=== PATIENT | female | born 1950 | race Caucasian/White ===

== ENCOUNTER → 2023-02-11 | Outpatient (CLI) | payer MEDICARE, BC, OTHER ==
[2023-02-11 15:14] LABS: BASO # 0.1 10^3/uL (0.0-0.2); BASO % 0.5 % (0.0-1.0); EOS # 0.1 10^3/uL (0.0-0.5); EOS % 0.9 % (0.0-3.0); HEMATOCRIT 48.7 % (36.0-47.0); HEMOGLOBIN 15.7 g/dl (12.0-15.5); LYMPH # 2.3 10^3/uL (1.5-5.0); LYMPH % 19.3 % (24.0-44.0); MEAN CORPUSCULAR HEMOGLOBIN 28.8 pg (27.0-33.0); MEAN CORPUSCULAR HGB CONC 32.2 g/dl (32.0-36.5); MEAN CORPUSCULAR VOLUME 89.4 fl (80.0-96.0); MONO # 1.2 10^3/uL (0.0-0.8); MONO % 10.1 % (2.0-8.0); NEUTROPHILS # 8.1 10^3/uL (1.5-8.5); NEUTROPHILS % 68.9 % (36.0-66.0); PLATELET COUNT, AUTOMATED 292 10^3/uL (150-450); RED BLOOD COUNT 5.45 10^6/uL (4.00-5.40); THYROXINE (T4) 13.2 UG/DL (4.5-10.9); WHITE BLOOD COUNT 11.7 10^3/uL (4.0-10.0)
[2023-02-11 15:15] LABS: ALBUMIN 3.7 G/DL (3.2-5.2); ALKALINE PHOSPHATASE 48 U/L (46-116); ALT/SGPT 26 U/L (7.0-40); AST/SGOT 21 U/L (<34); BILIRUBIN,TOTAL 0.6 MG/DL (0.3-1.2); BLOOD UREA NITROGEN 10 MG/DL (9-23); CALCIUM LEVEL 10.4 MG/DL (8.3-10.6); CARBON DIOXIDE LEVEL 28 MMOL/L (20-31); CHLORIDE LEVEL 100 MMOL/L (98-107); CREATININE FOR GFR 0.66 MG/DL (0.55-1.30); GLOMERULAR FILTRATION RATE > 60.0 (>39); GLUCOSE, FASTING 106 MG/DL (74-106); POTASSIUM SERUM 3.6 MMOL/L (3.5-5.1); SODIUM LEVEL 136 MMOL/L (136-145); THYROID STIMULATING HORMONE 0.027 uIU/ML (0.55-4.78); TOTAL PROTEIN 6.4 G/DL (5.7-8.2)
[2023-02-11 15:17] LABS: VITAMIN B12 LEVEL 725 PG/ML (211-911)
[2023-02-11 15:22] LABS: FREE THYROXINE INDEX 5.5 % (1.3-4.8)
[2023-02-11 15:25] LABS: FOLATE > 24.00 NG/ML (>5.4)
[2023-02-11 15:29] LABS: HEMOGLOBIN A1c 5.4 % (4.0-6.0)
== END ==
LOC: M PLALAB 10:48
PROVIDERS: ATTEND Psychiatry & Neurology Neurology
DX: E07.9 Disorder of thyroid, unspecified (principal); E53.8 Deficiency of other specified B group vitamins; R41.3 Other amnesia; Z13.1 Encounter for screening for diabetes mellitus; Z79.899 Other long term (current) drug therapy

== ENCOUNTER → 2023-05-02 | Outpatient (CLI) | payer MEDICARE, BC, OTHER | LOC: M PLARAD 11:26 | PROVIDERS: ATTEND Registered Nurse | DX: R91.8 Other nonspecific abnormal finding of lung field (principal) | CPT/HCPCS: 78815; A9552 ==

== ENCOUNTER 2023-06-15 09:29 | Day surgery (SDC) | payer MEDICARE, BC ==
[~2023-06-15] VITALS: Ht 154.9 cm; Wt 46.7 kg
[~2023-06-15 09:29] MED LIST: CALC500C16 PO; CENT1TAB PO; CLON0.2T PO; EPINEPHrine 1MG/10ML SYRINGE 1.5IN As Ordered ONE; HYDR100T PO; LOSA100T8 PO; MEMA10TA PO; METO50TA7 PO; POTA10CA60 PO; VITA100093 PO
[2023-06-15] MEDS ORDERED: LR 1,000 ML IV SCH ×2 (10:40→13:05)
[2023-06-15] MEDS: ALBUTEROL SULFATE 2.5MG/0.5ML INH NEB SOLN INH ONE (11:56)
[2023-06-15] MEDS ORDERED: fentaNYL 100 MCG/2 ML INJECTION As Ordered ONE (11:56)
[2023-06-15] MEDS ORDERED: ONDANSETRON 4MG 2ML VIAL As Ordered ONE (11:56)
[2023-06-15] MEDS ORDERED: LIDOCAINE 2% 100MG/5ML SDV (FOR ANES.) As Ordered ONE (11:56)
[2023-06-15] MEDS ORDERED: propofoL 200 MG/20 ML VIAL As Ordered ONE (11:56)
[2023-06-15] MEDS ORDERED: ROCURONIUM BROMIDE 50MG/5ML VIAL As Ordered ONE (11:56)
[2023-06-15] MEDS ORDERED: MIDAZOLAM INJ 2MG/2ML VIAL As Ordered ONE (11:56)
[2023-06-15] MEDS: LIDOCAINE PRES-FREE 2% 10ML AMP INH ONE (11:57)
[2023-06-15] MEDS: CETACAINE SPRAY 5GM As Ordered ONE (12:27)
[2023-06-15] MEDS ORDERED: SUGAMMADEX SODIUM 500 MG/5 ML VIAL (BRIDION) As Ordered ONE (12:30)
[2023-06-15] MEDS ORDERED: fentaNYL 100 MCG/2 ML INJECTION IV PRN (13:05)
[2023-06-15] MEDS ORDERED: oxyCODONE 5MG TAB PO PRN (13:05)
[2023-06-15] MEDS ORDERED: ONDANSETRON 4MG 2ML VIAL IV PRN (13:05)
[2023-06-15] MEDS ORDERED: HYDROMORPHONE HCL 0.5 MG/ 0.5 ML SYRINGE IV PRN (13:05)
[2023-06-15 14:06] VITALS: BP 144/67; TEMP 97.9; O2SAT 96
== END 2023-06-15 14:20 | disposition home or self-care (01) ==
LOC: M SDC 09:29
PROVIDERS: ATTEND Internal Medicine Critical Care Medicine
DX: C77.1 Secondary and unspecified malignant neoplasm of intrathoracic lymph nodes (principal); F17.210 Nicotine dependence, cigarettes, uncomplicated; Z79.899 Other long term (current) drug therapy
CPT/HCPCS: 31652; 88173; 88305; J1100; J2250; J2405; J3010

== ENCOUNTER → 2023-07-05 | Outpatient (CLI) | payer MEDICARE, BC ==
[~2023-07-05] MED LIST changes: -EPINEPHrine 1MG/10ML SYRINGE 1.5IN As Ordered ONE; +LIDOCAINE 1% MDV 20ML VIAL As Ordered ONE; +LIDOCAINE W/EPINEPHRINE 1% 20ML VIAL As Ordered ONE; +MIDAZOLAM INJ 2MG/2ML VIAL As Ordered ONE; +NS 1,000 ML IV SCH; -POTA10CA60 PO; +POTA10CA70 PO; +ceFAZolin 2 GM/D5W 50 ML IV BAG As Ordered ONE; +ceFAZolin SOD 2 GM in IV 1 EA IV ONE; +fentaNYL 100 MCG/2 ML INJECTION As Ordered ONE
[2023-07-05 12:50] VITALS: TEMP 98.9
[2023-07-05 15:30] VITALS: BP 134/70; O2SAT 97
== END ==
LOC: M IRPRO 12:28
PROVIDERS: ATTEND Internal Medicine Medical Oncology
DX: C34.32 Malignant neoplasm of lower lobe, left bronchus or lung (principal)
CPT/HCPCS: 36561; C1769; J0690; J2250; J3010

== ENCOUNTER → 2023-07-12 | Outpatient (CLI) | payer MEDICARE, BC ==
[~2023-07-12] MED LIST changes: +LIDO30CR18 TOP; -LIDOCAINE 1% MDV 20ML VIAL As Ordered ONE; -LIDOCAINE W/EPINEPHRINE 1% 20ML VIAL As Ordered ONE; -MIDAZOLAM INJ 2MG/2ML VIAL As Ordered ONE; -NS 1,000 ML IV SCH; +ONDA-84 PO; +PROC10TA5 PO; -ceFAZolin 2 GM/D5W 50 ML IV BAG As Ordered ONE; -ceFAZolin SOD 2 GM in IV 1 EA IV ONE; -fentaNYL 100 MCG/2 ML INJECTION As Ordered ONE
== END ==
LOC: M ONCR 10:44
PROVIDERS: ATTEND General Practice
DX: C34.12 Malignant neoplasm of upper lobe, left bronchus or lung (principal); F03.90 Unspecified dementia, unspecified severity, without behavioral disturbance, psychotic disturbance, mood disturbance, and anxiety; F40.240 Claustrophobia; Z71.2 Person consulting for explanation of examination or test findings; Z79.899 Other long term (current) drug therapy; Z87.891 Personal history of nicotine dependence; Z92.21 Personal history of antineoplastic chemotherapy

== ENCOUNTER → 2023-07-29 | Outpatient (RCR) | payer MEDICARE, BC | LOC: M ONCR 07-18 13:49 | PROVIDERS: ATTEND General Practice | DX: Z51.0 Encounter for antineoplastic radiation therapy (principal); C34.12 Malignant neoplasm of upper lobe, left bronchus or lung ==

== ENCOUNTER → 2023-08-01 | Outpatient (CLI) | payer MEDICARE, BC ==
[2023-08-01 15:38] LABS: TOTAL T3 148.8 NG/DL (60.0-181.0)
[2023-08-01 15:39] LABS: FREE T4 1.3 NG/DL (0.89-1.76); THYROID STIMULATING HORMONE 0.008 uIU/ML (0.55-4.78)
== END ==
LOC: M LAB 14:39
PROVIDERS: ATTEND Nurse Practitioner Family
DX: E05.00 Thyrotoxicosis with diffuse goiter without thyrotoxic crisis or storm (principal)

== ENCOUNTER 2023-08-26 13:04 | Outpatient (RCR) | payer MEDICARE, BC ==
[~2023-08-26 13:04] MED LIST changes: +LIDO15SO8 PO
== END 2023-08-28 ==
LOC: M ONCR 13:04
PROVIDERS: ATTEND General Practice
DX: Z51.0 Encounter for antineoplastic radiation therapy (principal); C34.12 Malignant neoplasm of upper lobe, left bronchus or lung

== ENCOUNTER 2023-09-08 13:15 | Outpatient (RCR) | payer MEDICARE, BC | END 2023-09-28 | LOC: M ONCR 13:15 | PROVIDERS: ATTEND General Practice | DX: Z51.0 Encounter for antineoplastic radiation therapy (principal); C34.12 Malignant neoplasm of upper lobe, left bronchus or lung ==

== ENCOUNTER → 2023-09-16 | Outpatient (CLI) | payer MEDICARE, BC ==
[2023-09-16 15:45] LABS: FREE T4 1.17 NG/DL (0.89-1.76); THYROID STIMULATING HORMONE 0.008 uIU/ML (0.55-4.78)
== END ==
LOC: M LAB 14:48
PROVIDERS: ATTEND Internal Medicine Endocrinology, Diabetes & Metabolism
DX: E05.00 Thyrotoxicosis with diffuse goiter without thyrotoxic crisis or storm (principal)

== ENCOUNTER → 2023-10-06 | Outpatient (CLI) | payer MEDICARE, BC ==
[~2023-10-06] MED LIST changes: +ISOVUE-370 76% 100ML VIAL As Ordered ONE
== END ==
LOC: M RAD 09:34
PROVIDERS: ATTEND General Practice
DX: C34.12 Malignant neoplasm of upper lobe, left bronchus or lung (principal)
CPT/HCPCS: 70470; Q9967

== ENCOUNTER → 2023-10-11 | Outpatient (CLI) | payer MEDICARE, BC ==
[~2023-10-11] MED LIST changes: -ISOVUE-370 76% 100ML VIAL As Ordered ONE; +POTA-151 PO; +SPIR12.9
== END ==
LOC: M ONCR 13:12
PROVIDERS: ATTEND General Practice
DX: C34.12 Malignant neoplasm of upper lobe, left bronchus or lung (principal); F03.90 Unspecified dementia, unspecified severity, without behavioral disturbance, psychotic disturbance, mood disturbance, and anxiety; Z79.899 Other long term (current) drug therapy; Z87.891 Personal history of nicotine dependence; Z92.21 Personal history of antineoplastic chemotherapy; Z92.3 Personal history of irradiation

== ENCOUNTER → 2023-12-05 | Outpatient (CLI) | payer MEDICARE, BC ==
[~2023-12-05] MED LIST changes: +GASTROGRAFIN SOLUTION 30ML As Ordered ONE; +ISOVUE-370 76% 100ML VIAL As Ordered ONE
== END ==
LOC: M RAD 13:53
PROVIDERS: ATTEND Dietitian, Registered
DX: C34.90 Malignant neoplasm of unspecified part of unspecified bronchus or lung (principal)
CPT/HCPCS: 71260; 74177; Q9963; Q9967

== ENCOUNTER → 2024-01-04 | Outpatient (CLI) | payer MEDICARE, BC ==
[~2024-01-04] MED LIST changes: -GASTROGRAFIN SOLUTION 30ML As Ordered ONE
== END ==
LOC: M RAD 13:48
PROVIDERS: ATTEND General Practice
DX: I63.81 Other cerebral infarction due to occlusion or stenosis of small artery (principal); I67.82 Cerebral ischemia; C34.12 Malignant neoplasm of upper lobe, left bronchus or lung
CPT/HCPCS: 70470; Q9967

== ENCOUNTER → 2024-01-11 | Outpatient (CLI) | payer MEDICARE, BC ==
[~2024-01-11] MED LIST changes: -ISOVUE-370 76% 100ML VIAL As Ordered ONE
== END ==
LOC: M ONCR 13:26
PROVIDERS: ATTEND General Practice
DX: C34.12 Malignant neoplasm of upper lobe, left bronchus or lung (principal); Z79.899 Other long term (current) drug therapy; Z87.891 Personal history of nicotine dependence; Z92.21 Personal history of antineoplastic chemotherapy; Z92.3 Personal history of irradiation

== ENCOUNTER → 2024-03-23 | Outpatient (CLI) | payer MEDICARE, BC ==
[~2024-03-23] MED LIST changes: +ISOVUE-370 76% 100ML VIAL As Ordered ONE
== END ==
LOC: M RAD 12:29
PROVIDERS: ATTEND Internal Medicine Hematology & Oncology
DX: C34.32 Malignant neoplasm of lower lobe, left bronchus or lung (principal); C77.3 Secondary and unspecified malignant neoplasm of axilla and upper limb lymph nodes; E07.89 Other specified disorders of thyroid; J98.11 Atelectasis; I25.10 Atherosclerotic heart disease of native coronary artery without angina pectoris; I70.0 Atherosclerosis of aorta; M51.34 Other intervertebral disc degeneration, thoracic region; K80.20 Calculus of gallbladder without cholecystitis without obstruction; K76.9 Liver disease, unspecified; N28.1 Cyst of kidney, acquired; K57.30 Diverticulosis of large intestine without perforation or abscess without bleeding; R16.0 Hepatomegaly, not elsewhere classified
CPT/HCPCS: 71260; 74177; Q9967

== ENCOUNTER → 2024-04-05 | Outpatient (CLI) | payer MEDICARE, BC ==
[2024-04-05 13:42] LABS: ALBUMIN 3.6 G/DL (3.2-5.2); ALKALINE PHOSPHATASE 56 U/L (35-104); ALT/SGPT 17 U/L (7.0-40); AST/SGOT 14 U/L (<34); BILIRUBIN,TOTAL 0.6 MG/DL (0.3-1.2); BLOOD UREA NITROGEN 17 MG/DL (9-23); CALCIUM LEVEL 9.8 MG/DL (8.3-10.6); CARBON DIOXIDE LEVEL 32 MMOL/L (20-31); CHLORIDE LEVEL 104 MMOL/L (98-107); CREATININE FOR GFR 0.82 MG/DL (0.55-1.30); GLOMERULAR FILTRATION RATE > 60.0 (>39); GLUCOSE, FASTING 91 MG/DL (74-106); POTASSIUM SERUM 3.4 MMOL/L (3.5-5.1); SODIUM LEVEL 144 MMOL/L (136-145); TOTAL PROTEIN 6.7 G/DL (5.7-8.2)
== END ==
LOC: M RAD 12:39
PROVIDERS: ATTEND General Practice
DX: C34.12 Malignant neoplasm of upper lobe, left bronchus or lung (principal); F03.90 Unspecified dementia, unspecified severity, without behavioral disturbance, psychotic disturbance, mood disturbance, and anxiety
CPT/HCPCS: 36415; 70470; 80053; Q9967

== ENCOUNTER → 2024-04-12 | Outpatient (CLI) | payer MEDICARE, BC ==
[~2024-04-12] MED LIST changes: -ISOVUE-370 76% 100ML VIAL As Ordered ONE
== END ==
LOC: M ONCR 13:04
PROVIDERS: ATTEND General Practice
DX: C34.12 Malignant neoplasm of upper lobe, left bronchus or lung (principal); Z87.891 Personal history of nicotine dependence; Z92.21 Personal history of antineoplastic chemotherapy; Z92.3 Personal history of irradiation; Z79.899 Other long term (current) drug therapy

== ENCOUNTER → 2024-06-14 | Outpatient (CLI) | payer MEDICARE, BC ==
[2024-06-14 11:42] LABS: BASO # 0.1 10^3/uL (0.0-0.2); BASO % 0.7 % (0.0-1.0); EOS # 0.2 10^3/uL (0.0-0.5); EOS % 3.4 % (0.0-3.0); HEMATOCRIT 43.7 % (36.0-47.0); HEMOGLOBIN 13.9 g/dl (12.0-15.5); LYMPH # 1.1 10^3/uL (1.5-5.0); LYMPH % 16.1 % (24.0-44.0); MEAN CORPUSCULAR HEMOGLOBIN 28.5 pg (27.0-33.0); MEAN CORPUSCULAR HGB CONC 31.8 g/dl (32.0-36.5); MEAN CORPUSCULAR VOLUME 89.7 fl (80.0-96.0); MONO # 0.8 10^3/uL (0.0-0.8); NEUTROPHILS # 4.6 10^3/uL (1.5-8.5); NEUTROPHILS % 67.4 % (36.0-66.0); PLATELET COUNT, AUTOMATED 187 10^3/uL (150-450); RED BLOOD COUNT 4.87 10^6/uL (4.00-5.40); WHITE BLOOD COUNT 6.8 10^3/uL (4.0-10.0)
[2024-06-14 11:52] LABS: ALBUMIN 3.6 G/DL (3.2-5.2); BILIRUBIN,TOTAL 0.8 MG/DL (0.3-1.2); CALCIUM LEVEL 9.5 MG/DL (8.3-10.6); CREATININE FOR GFR 0.85 MG/DL (0.55-1.30); POTASSIUM SERUM 3.7 MMOL/L (3.5-5.1); TOTAL PROTEIN 6.8 G/DL (5.7-8.2)
== END ==
LOC: M LAB 10:49
PROVIDERS: ATTEND Nurse Practitioner Women's Health
DX: C34.90 Malignant neoplasm of unspecified part of unspecified bronchus or lung (principal)

== ENCOUNTER → 2024-06-14 | Outpatient (REF) | payer MEDICARE, BC ==
[2024-06-14 15:37] LABS: FREE T4 1.58 NG/DL (0.89-1.76); TOTAL T3 133.6 NG/DL (60.0-181.0)
[2024-06-14 15:38] LABS: THYROID STIMULATING HORMONE 0.037 uIU/ML (0.55-4.78)
== END ==
LOC: M LAB REF 15:10
PROVIDERS: ATTEND Nurse Practitioner Family
DX: E05.00 Thyrotoxicosis with diffuse goiter without thyrotoxic crisis or storm (principal); C34.90 Malignant neoplasm of unspecified part of unspecified bronchus or lung

== ENCOUNTER → 2024-06-21 | Outpatient (CLI) | payer MEDICARE, BC ==
[~2024-06-21] MED LIST changes: +ISOVUE-370 76% 100ML VIAL As Ordered ONE
== END ==
LOC: M RAD 11:06
PROVIDERS: ATTEND Nurse Practitioner Women's Health
DX: C34.90 Malignant neoplasm of unspecified part of unspecified bronchus or lung (principal); K80.20 Calculus of gallbladder without cholecystitis without obstruction; E27.8 Other specified disorders of adrenal gland; D25.9 Leiomyoma of uterus, unspecified
CPT/HCPCS: 71260; 74177; Q9967

== ENCOUNTER → 2024-07-09 | Outpatient (CLI) | payer MEDICARE, BC ==
[~2024-07-09] MED LIST changes: -ISOVUE-370 76% 100ML VIAL As Ordered ONE
== END ==
LOC: M RAD 12:35
PROVIDERS: ATTEND Nurse Practitioner Family
DX: E05.20 Thyrotoxicosis with toxic multinodular goiter without thyrotoxic crisis or storm (principal)

== ENCOUNTER → 2024-09-28 | Outpatient (CLI) | payer MEDICARE, BC | LOC: M RAD 13:46 | PROVIDERS: ATTEND General Practice | DX: C34.12 Malignant neoplasm of upper lobe, left bronchus or lung (principal) ==

== ENCOUNTER → 2024-09-28 | Outpatient (CLI) | payer MEDICARE, BC ==
[~2024-09-28] MED LIST changes: +ISOVUE-370 76% 100 ML VIAL As Ordered ONE
== END ==
LOC: M RAD 13:51
PROVIDERS: ATTEND Internal Medicine Medical Oncology
DX: C34.90 Malignant neoplasm of unspecified part of unspecified bronchus or lung (principal); J43.9 Emphysema, unspecified; M85.89 Other specified disorders of bone density and structure, multiple sites; K76.89 Other specified diseases of liver; N28.1 Cyst of kidney, acquired; D25.9 Leiomyoma of uterus, unspecified; I77.4 Celiac artery compression syndrome; K55.1 Chronic vascular disorders of intestine
CPT/HCPCS: 70470; 71260; 74177; Q9967

== ENCOUNTER → 2024-10-10 | Outpatient (CLI) | payer MEDICARE, BC ==
[~2024-10-10] MED LIST changes: -ISOVUE-370 76% 100 ML VIAL As Ordered ONE
== END ==
LOC: M ONCR 13:20
PROVIDERS: ATTEND General Practice
DX: C34.31 Malignant neoplasm of lower lobe, right bronchus or lung (principal); F03.90 Unspecified dementia, unspecified severity, without behavioral disturbance, psychotic disturbance, mood disturbance, and anxiety; Z79.899 Other long term (current) drug therapy; Z86.73 Personal history of transient ischemic attack (TIA), and cerebral infarction without residual deficits; Z87.891 Personal history of nicotine dependence; Z92.21 Personal history of antineoplastic chemotherapy; Z92.3 Personal history of irradiation

== ENCOUNTER → 2025-01-01 | Outpatient (CLI) | payer MEDICARE, BC ==
[~2025-01-01] MED LIST changes: +ISOVUE-370 76% 100 ML VIAL As Ordered ONE
== END ==
LOC: M RAD 08:20
PROVIDERS: ATTEND Internal Medicine Medical Oncology
DX: C34.90 Malignant neoplasm of unspecified part of unspecified bronchus or lung (principal); I25.10 Atherosclerotic heart disease of native coronary artery without angina pectoris; K76.89 Other specified diseases of liver; K80.20 Calculus of gallbladder without cholecystitis without obstruction; N28.1 Cyst of kidney, acquired; K57.90 Diverticulosis of intestine, part unspecified, without perforation or abscess without bleeding; D25.9 Leiomyoma of uterus, unspecified; I70.0 Atherosclerosis of aorta; E05.90 Thyrotoxicosis, unspecified without thyrotoxic crisis or storm; J43.9 Emphysema, unspecified; J98.11 Atelectasis; I77.810 Thoracic aortic ectasia
CPT/HCPCS: 71260; 74177; Q9967